=== PATIENT | female | born 1980 | race Caucasian/White ===

== ENCOUNTER 2025-03-04 14:40 | Emergency (ER) | payer OTHER, SELFPAY ==
[2025-03-04 15:05] VITALS: BP 166/84; PULSE 81; RESP 18; TEMP 36.9; O2SAT 100; BMI 23.0
[2025-03-04 15:57] VITALS: PULSE 71; O2SAT 100
[2025-03-04 15:59] LABS: Culture Indicated Urine Cult Not Indicated
[2025-03-04 16:00] VITALS: PULSE 67; RESP 12; O2SAT 100
[2025-03-04 16:01] VITALS: BP 120/77; PULSE 63; RESP 17; O2SAT 100
[2025-03-04 16:02] LABS: Add Manual Diff / Slide Review NO; Hematocrit 41.2 % (36-46); Hemoglobin 13.9 g/dL (12.0-16.0); Lymphocytes Absolute Auto 1200 /uL (1100-4500); Mean Corpuscular HGB Conc 33.8 % (30-36); Mean Corpuscular Hemoglobin 32.4 PG (26-34); Mean Corpuscular Volume 95.8 fL (80-100); Platelet Count 192 X10^3/uL (150-400)
[2025-03-04 16:23] LABS: Alanine Aminotransferase 17 IU/L (<35); Albumin 4.6 g/dL (3.5-5.0); Albumin Globulin Ratio 1.5 (1.0-2.8); Alkaline Phosphatase 42 U/L (38-126); Blood Urea Nitrogen 15 mg/dL (7-17); Calcium 9.0 mg/dL (8.4-10.2); Carbon Dioxide 22 mmol/L (22-32); Chloride 103 mmol/L (98-107); Estimated Glomerular Filt Rate > 60 mL/min (>60); Globulin 3.0 g/dL (1.7-4.1); Glucose 86 mg/dL (70-99); HEMOLYSIS < 15 (0-50); Lipase 66 U/L (23-300); Potassium 3.9 mmol/L (3.4-5.1); Sodium 135 mmol/L (137-145); Total Protein 7.6 g/dL (6.3-8.2)
[2025-03-04 16:30] VITALS: BP 109/70; PULSE 65; RESP 12; O2SAT 98
--- NOTE | 2025-03-04 17:09 | ED.ABDPAIN ---
HPI - Abdominal Pain <Diana Soto PA-C - Last Filed: 03/04/25 19:16> General Chief Complaint: Abdominal Pain Stated Complaint: abd pain, chills, Time Seen by Provider: 03/04/25 16:57 Source: patient Mode of arrival: Ambulatory History of Present Illness HPI narrative: Ms. Vogel is a very pleasant 44-year-old female with no reported past medical history who presents to the emergency department for right lower quadrant abdominal pain since approximately 11:00 a.m. today. 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 Pain is slightly improved from prior today however it is still present. She denies radiation of pain. Pain is worse with pressing and moving around. She was feeling some chills as well. No fevers, chest pain, shortness of breath, dysuria, hematuria, diarrhea, constipation. No prior abdominal surgeries. NPO from food since 10:30 a.m. this morning, nuts. NPO from drinks since noon. Related Data Allergies Allergy/AdvReac Type Severity Reaction Status Date / Time No Known Drug Allergies Allergy Verified 03/04/25 15:05 Review of Systems <Diana Soto PA-C - Last Filed: 03/04/25 19:16> Review of Systems ROS Unobtainable: All systems reviewed & are unremarkable except as noted in HPI and below Patient History <Diana Soto PA-C - Last Filed: 03/04/25 19:16> Social History Smoking Status: Never smoker Smoking Status: Never smoker Exam <DIAZ Garza Last Filed: 03/04/25 19:16> Narrative Exam Narrative: GENERAL: 44 year old patient appears stated age. Well-developed patient, in no acute distress. HEAD: Atraumatic. Normocephalic. EYES: No scleral icterus. No injection or drainage. ENT: Nose without bleeding, purulent drainage. NECK: Trachea midline. Cervical ROM intact. CARDIOVASCULAR: Regular rate and rhythm. RESPIRATORY: ?Nonlabored respirations. ?Speaking in clear, full sentences. ?Clear to auscultation. Breath sounds equal bilaterally. No wheezes, rales, or rhonchi. ? GASTROINTESTINAL: Abdomen soft, nondistended. Bowel sounds present. Tenderness to palpation of the right lower quadrant and suprapubic region. Negative Arellano's sign. EXTREMITIES: No edema or joint tenderness. BACK: No CVA tenderness. NEURO: AOx3. ?Clear speech. ?Moves all 4 extremities appropriately. SKIN: No rash or erythema of visible areas Initial Vital Signs Initial Vital Signs: Vital Signs Temperature 98.5 F 03/04/25 15:05 Pulse Rate 81 03/04/25 15:05 Respiratory Rate 18 03/04/25 15:05 Blood Pressure 166/84 H 03/04/25 15:05 Pulse Oximetry 100 03/04/25 15:05 Oxygen Delivery Method Room Air 03/04/25 15:05 <Ciara Stewart DO - Last Filed: 03/05/25 08:58> Initial Vital Signs Initial Vital Signs: Vital Signs Temperature 98.5 F 03/04/25 15:05 Pulse Rate 81 03/04/25 15:05 Respiratory Rate 18 03/04/25 15:05 Blood Pressure 166/84 H 03/04/25 15:05 Pulse Oximetry 100 03/04/25 15:05 Oxygen Delivery Method Room Air 03/04/25 15:05 Course <Diana Soto PA-C - Last Filed: 03/04/25 19:16> Orders Ordered: Discontinued Medications Sodium Chloride (Normal Saline 0.9%) 1,000 mls @ 1,000 mls/hr IV BOLUS ONE Stop: 03/04/25 18:08 Last Admin: 03/04/25 17:21 Dose: 1,000 mls/hr Documented By: PETER Ketorolac Tromethamine (Ketorolac 30 Mg/Ml Vial) 15 mg IV NOW ONE Stop: 03/04/25 18:45 Last Admin: 03/04/25 18:48 Dose: 15 mg Documented By: LANE Ondansetron HCl (Ondansetron 4 Mg/2 Ml Inj) 4 mg IV NOW PRN PRN Reason: Nausea And Vomiting Ondansetron HCl (Ondansetron 4 Mg Odt) 4 mg PO NOW PRN PRN Reason: Nausea And Vomiting Vital Signs Vital signs: Vital Signs - 8 hr 03/04/25 15:05 03/04/25 15:57 03/04/25 16:00 Temperature 98.5 F Pulse Rate 81 71 67 Respiratory Rate 18 12 Blood Pressure 166/84 H Pulse Oximetry 100 100 100 Oxygen Delivery Method Room Air 03/04/25 16:01 03/04/25 16:01 03/04/25 16:30 Temperature Pulse Rate 63 65 Respiratory Rate 17 12 Blood Pressure 120/77 Pulse Oximetry 100 98 Oxygen Delivery Method 03/04/25 16:30 Temperature Pulse Rate Respiratory Rate Blood Pressure 109/70 Pulse Oximetry Oxygen Delivery Method <Ciara Stewart DO - Last Filed: 03/05/25 08:58> Orders Ordered: Discontinued Medications Sodium Chloride (Normal Saline 0.9%) 1,000 mls @ 1,000 mls/hr IV BOLUS ONE Stop: 03/04/25 18:08 Last Admin: 03/04/25 17:21 Dose: 1,000 mls/hr Documented By: PETER Ketorolac Tromethamine (Ketorolac 30 Mg/Ml Vial) 15 mg IV NOW ONE Stop: 03/04/25 18:45 Last Admin: 03/04/25 18:48 Dose: 15 mg Documented By: LANE Ondansetron HCl (Ondansetron 4 Mg/2 Ml Inj) 4 mg IV NOW PRN PRN Reason: Nausea And Vomiting Ondansetron HCl (Ondansetron 4 Mg Odt) 4 mg PO NOW PRN PRN Reason: Nausea And Vomiting Vital Signs Vital signs: Vital Signs - 8 hr 03/04/25 15:05 03/04/25 15:57 03/04/25 16:00 Temperature 98.5 F Pulse Rate 81 71 67 Respiratory Rate 18 12 Blood Pressure 166/84 H Pulse Oximetry 100 100 100 Oxygen Delivery Method Room Air 03/04/25 16:01 03/04/25 16:01 03/04/25 16:30 Temperature Pulse Rate 63 65 Respiratory Rate 17 12 Blood Pressure 120/77 Pulse Oximetry 100 98 Oxygen Delivery Method 03/04/25 16:30 Temperature Pulse Rate Respiratory Rate Blood Pressure 109/70 Pulse Oximetry Oxygen Delivery Method MDM - Abdominal Pain <Diana Soto PA-C - Last Filed: 03/04/25 19:16> Medical Records Medical records narrative: None available for review Lab Data 03/04/25 15:50 03/04/25 15:50 Labs: Lab Results 03/04/25 03/04/25 Range/Units 15:29 15:50 WBC 12.2 H (4.5-11.0) X10^3/uL RBC 4.30 (4.0-5.2) X10^6/uL Hgb 13.9 (12.0-16.0) g/dL Hct 41.2 (36-46) % MCV 95.8 (80-100) fL MCH 32.4 (26-34) PG MCHC 33.8 (30-36) % RDW 12.9 (11.6-14.8) % Plt Count 192 (150-400) X10^3/uL Neut % (Auto) 83.8 H (50-75) % Lymph % (Auto) 10.1 L (25-40) % [place] % (Auto) 4.2 (3-14) % Eos % (Auto) 1.6 L (2-4) % Baso % (Auto) 0.3 (0-2) % Neut # (Auto) 88091 H (1987-7064) /uL Lymph # (Auto) 1200 (7764-1655) /uL [place] # (Auto) 500 (0-900) /uL Eos # (Auto) 200 (0-450) /uL Baso # (Auto) 0 (0-100) /uL Sodium 135 L (137-145) mmol/L Potassium 3.9 (3.4-5.1) mmol/L Chloride 103 (98-107) mmol/L Carbon Dioxide 22 (22-32) mmol/L BUN 15 (7-17) mg/dL Creatinine 0.67 (0.52-1.04) mg/dL Estimated GFR > 60 (>60) mL/min BUN/Creatinine Ratio 22.4 H (6-22) Glucose 86 (70-99) mg/dL Calcium 9.0 (8.4-10.2) mg/dL Total Bilirubin 0.6 (0.2-1.3) mg/dL AST 26 (14-36) IU/L ALT 17 (<35) IU/L Alkaline Phosphatase 42 (38-126) U/L Total Protein 7.6 (6.3-8.2) g/dL Albumin 4.6 (3.5-5.0) g/dL Globulin 3.0 (1.7-4.1) g/dL Albumin/Globulin Ratio 1.5 (1.0-2.8) Lipase 66 (23-300) U/L Urine RBC 0-1/hpf (0-5/HPF) Urine WBC 0-1/hpf (0-5/HPF) Ur Squamous Epith Cells 1-5 /hpf (0-5/HPF) Urine Bacteria Occasional (0-1) (None) Ur Culture Indicated? Cult not indicated Vol Urine Centrifuged 10ml (spun) Point of care testing: Point of Care Testing Test Results Negative Urine Dip Bedside Urine Glucose Negative Bedside Urine Bilirubin - Negative Bedside Urine Ketone ++ 40 Urine Specific [place] 1.015 Bedside Urine Occult Blood +/- Bedside Urine pH 6.0 Bedside Urine Protein - Negative Bedside Urine Urobilinogen - Negative Bedside Urine Nitrite - Negative Bedside Urine Leukocytes - Negative Esterase Imaging Data CT scan - abdomen/pelvis: Radiologist's Impression: PROCEDURE: CT ABDOMEN PELVIS W CON INDICATIONS: RLQ abd pain concern appy TECHNIQUE: After the administration of intravenous contrast, axial sections acquired from the lung bases to the pubic symphysis. Coronal and sagittal reformats were performed. For radiation dose reduction, the following was used: automated exposure control, adjustment of mA and/or kV according to patient size. COMPARISON: None. FINDINGS: Image quality: Diagnostic. Lower Chest: No significant findings. ABDOMEN: Liver: No solid mass. Gallbladder: No radiopaque gallstones or wall thickening. Biliary ducts: No biliary dilation. Pancreas: No ductal dilation. Spleen: Size is within normal limits. Adrenal Glands: No adrenal nodules. Kidneys and Ureters: No hydronephrosis. No solid mass. No complex renal cystic lesion which requires follow up. Stomach and Bowel: Normal colonic caliber, without significant wall thickening. Prominent colonic stool. Visualized portions the appendix are unremarkable. Peritoneum: Dependent pelvic fluid. No free air. Ventral Wall: No significant ventral hernia. Abdominal Nodes: No retroperitoneal or mesenteric adenopathy by size criteria. Vessels: Aorta and inferior vena cava are normal in size. PELVIS: Pelvic Organs: IUD is present. 9 mm enhancing focus within the left ovary. Bladder: No bladder wall thickening, accounting for underdistention. Pelvic Nodes: No enlarged lymph nodes. Miscellaneous: No inguinal hernias are seen. Bones: No aggressive osseous abnormality. IMPRESSION: Significant colonic stool without obstruction. Visualized portions of the appendix are unremarkable. Subcentimeter enhancing focus within the left ovary likely evolving hemorrhagic cyst. Dictated by: Dionna Fraga M.D. on 03/04/2025 at 18:13 Approved by: Dionna Fraga M.D. on 03/04/2025 at 18:15 [facility] Narrative Medical decision making narrative: 44-year-old female with no reported past medical history who presents to the emergency department for right lower quadrant abdominal pain since approximately 11:00 a.m. today. Differential diagnosis includes but is not limited to appendicitis, epiploic appendagitis, ovarian cyst, UTI, pyelonephritis, ureterolithiasis, etc. Lab work and urinalysis performed prior to my evaluation. On exam patient is in no acute distress, nontoxic appearing, vital signs within normal limits, afebrile and not tachycardic. She is tenderness to palpation of the right lower quadrant of the abdomen. Labs reveal elevated with WBC count 12.2 with elevation of neutrophils at 83.8%. Normal hemoglobin hematocrit. Normal platelets 192. Sodium 135, potassium 3.9. Normal renal function BUN 15 creatinine 0.67. Glucose 86. All LFTs within normal limits. Normal lipase 66. UA without signs of infection. Preg neg. We will treat with IV fluids and CT abdomen and pelvis with IV contrast, patient declines need for pain medication at this time. Imaging reveals significant colonic stool without obstruction. Visualized portions of the appendix are unremarkable. Subcentimeter enhancing focus in the left ovary likely evolving hemorrhagic cyst. Results were printed and discussed with the patient. She is agreeable to trying Toradol for pain. She is not having any abnormal vaginal bleeding or vaginal discharge. Advised patient rest, hydrate, use ibuprofen/Tylenol for pain, MiraLax for significant colonic stool, continue to monitor symptoms. We discussed strict ED return precautions including but not limited to new or worsening pain, fevers, vomiting, dysuria or vaginal discharge. She understands that only portions of the appendix were visualized and repeat evaluation will be needed for worsening symptoms. She is in good spirits and eager for discharge home. Patient and spouse verbalized understanding of all information agreeable to the plan, all questions answered, she is stable for discharge home, repeat abdominal exam improved. <Ciara Stewart, DO - Last Filed: 03/05/25 08:58> Lab Data Labs: Lab Results 03/04/25 03/04/25 Range/Units 15:29 15:50 WBC 12.2 H (4.5-11.0) X10^3/uL RBC 4.30 (4.0-5.2) X10^6/uL Hgb 13.9 (12.0-16.0) g/dL Hct 41.2 (36-46) % MCV 95.8 (80-100) fL MCH 32.4 (26-34) PG MCHC 33.8 (30-36) % RDW 12.9 (11.6-14.8) % Plt Count 192 (150-400) X10^3/uL Neut % (Auto) 83.8 H (50-75) % Lymph % (Auto) 10.1 L (25-40) % [place] % (Auto) 4.2 (3-14) % Eos % (Auto) 1.6 L (2-4) % Baso % (Auto) 0.3 (0-2) % Neut # (Auto) 79534 H (0427-9511) /uL Lymph # (Auto) 1200 (6531-2254) /uL [place] # (Auto) 500 (0-900) /uL Eos # (Auto) 200 (0-450) /uL Baso # (Auto) 0 (0-100) /uL Sodium 135 L (137-145) mmol/L Potassium 3.9 (3.4-5.1) mmol/L Chloride 103 (98-107) mmol/L Carbon Dioxide 22 (22-32) mmol/L BUN 15 (7-17) mg/dL Creatinine 0.67 (0.52-1.04) mg/dL Estimated GFR > 60 (>60) mL/min BUN/Creatinine Ratio 22.4 H (6-22) Glucose 86 (70-99) mg/dL Calcium 9.0 (8.4-10.2) mg/dL Total Bilirubin 0.6 (0.2-1.3) mg/dL AST 26 (14-36) IU/L ALT 17 (<35) IU/L Alkaline Phosphatase 42 (38-126) U/L Total Protein 7.6 (6.3-8.2) g/dL Albumin 4.6 (3.5-5.0) g/dL Globulin 3.0 (1.7-4.1) g/dL Albumin/Globulin Ratio 1.5 (1.0-2.8) Lipase 66 (23-300) U/L Urine RBC 0-1/hpf (0-5/HPF) Urine WBC 0-1/hpf (0-5/HPF) Ur Squamous Epith Cells 1-5 /hpf (0-5/HPF) Urine Bacteria Occasional (0-1) (None) Ur Culture Indicated? Cult not indicated Vol Urine Centrifuged 10ml (spun) Point of care testing: Point of Care Testing Test Results Negative Urine Dip Bedside Urine Glucose Negative Bedside Urine Bilirubin - Negative Bedside Urine Ketone ++ 40 Urine Specific [place] 1.015 Bedside Urine Occult Blood +/- Bedside Urine pH 6.0 Bedside Urine Protein - Negative Bedside Urine Urobilinogen - Negative Bedside Urine Nitrite - Negative Bedside Urine Leukocytes - Negative Esterase Discharge Plan Departure Patient Disposition: Home Clinical Impression: Lower abdominal pain, Hemorrhagic cyst of left ovary Instructions: DI for Abdominal Pain-Adult Activity Restrictions/Additional Instructions: Dear Jaspreet, Thank you for coming to the emergency department. Today you were evaluated for abdominal pain. Your CT scan today revealed what appears to be a hemorrhagic cyst of the left ovary. The visualized portions of your appendix were normal. You did have a significant amount of stool throughout her colon. Your labs revealed slight elevation of your white blood cell count, otherwise your labs were reassuring with normal kidney and liver function. At this time I would like you to rest, hydrate, use ibuprofen and Tylenol as needed for pain, in addition to MiraLax to help soften stool. I would like you to follow up with your primary care doctor for a pelvic ultrasound and repeat lab work. Please return to the ER if you develop any new or worsening symptoms such as severe abdominal pain, fevers, vomiting, abnormal vaginal discharge or any other concerns. Please follow up with your primary care doctor within the next 2-3 days for ER follow-up. (If you do not have a PCP you can call [phone]. ?to schedule an appointment with an [facility] Primary Care Provider) IF YOU DEVELOP ANY NEW OR WORSENING SYMPTOMS, RETURN TO THE ER! Please read the attached instructions, they highlight more specific treatments and interventions for you at home. Thank you for letting me participate in your care, Diana Soto PA-C Stand Alone Forms: Patient Portal/API, Work Release Note ED Sign-out <Ciara Stewart, - Last Filed: 03/05/25 08:58> Cosign ED Attending Cosoliviaature Attestation: I was immediately available in the department for consultation.
[2025-03-04] MEDS: SODIUM CHLORIDE 0.9% 1,000 ML 1000 ML IV (17:21)
[2025-03-04] MEDS: KETOROLAC 30 MG/ML VIAL 15 MG IV (18:48)
[2025-03-04 19:10] VITALS: BP 114/69; PULSE 65; RESP 18; O2SAT 100
== END 2025-03-04 19:10 | disposition home or self-care (01) ==
PROVIDERS: Emergency Medicine; Emergency Provider Physician Assistant
DX: N83.202 Unspecified ovarian cyst, left side (principal); R10.30 Lower abdominal pain, unspecified
CPT/HCPCS: 36415; 74177; 80053; 81003; 81015; 81025; 83690; 85025; 87086; 96361; 96374; 99284; J1885